=== PATIENT | male | born 1985 | race African-American/Black ===

== ENCOUNTER 2021-02-25 05:24 | Emergency (ER) | payer OTHER ==
[2021-02-25 05:58] LABS: BASOPHIL 0.3 % (0-2); EOSINOPHIL 2.6 % (0-5); HCT 47.4 % (42.0-52.0); HGB 16.7 g/dl (13.2-18.0); LYMPHOCYTE 22.7 % (15-48); MCH 29.5 pg (25.0-31.0); MCHC 35.2 g/dL (32.0-36.0); MCV 83.7 fL (78.0-100.0); MONOCYTE 18.2 % (0-12); MPV 9.5 fL (6.0-9.5); NEUTROPHIL 55.9 % (41-80); NRBC 0; PLT 227 K/uL (150-400); RBC 5.66 M/uL (4.70-6.00); RDW 12.5 % (11.5-14.0); WBC 5.8 K/uL (4.0-10.5)
[2021-02-25 06:18] LABS: ALBUMIN 3.8 g/dL (3.4-5.0); BILIRUBIN - TOTAL 0.5 mg/dL (0.2-1.0); BUN/CREAT RATIO (CALC) 12.4 RATIO; CREATININE 1.13 mg/dL (0.67-1.17); GLOBULIN (CALCULATION) 3.7 g/dL; MAGNESIUM 2.2 mg/dL (1.8-2.4); POTASSIUM 3.6 mmol/L (3.5-5.1); TOTAL PROTEIN 7.5 g/dL (6.4-8.2)
[2021-02-25] MEDS ORDERED: IBUPROFEN800 MG PO (06:51)
[2021-02-25] MEDS ORDERED: CYCLOBENZAPRINE10 MG PO (06:51)
[2021-02-25] MEDS ORDERED: PERCOCET 5-3251 EACH PO (06:51)
[2021-02-25] MEDS ORDERED: MEDROL 4MG DOSEP4 MG PO (06:51)
== END 2021-02-25 08:00 | disposition home or self-care (01) ==
LOC: FER 05:24
PROVIDERS: Emergency Medicine Emergency Medical Services
DX: M62.830 Muscle spasm of back (principal); R11.2 Nausea with vomiting, unspecified; I10 Essential (primary) hypertension; Z79.899 Other long term (current) drug therapy
CPT/HCPCS: 36415; 80053; 83735; 85025; J1100; J1170; J1885; J2405; J2800; J7050

== ENCOUNTER → 2022-08-12 | Day surgery (SDC) | payer OTHER ==
[~2022-08-12] VITALS: Ht 190.5 cm; Wt 127.0 kg
[~2022-08-12] MED LIST: CYCLOBENZAPRINE10 MG PO; HCTZ25 MG PO; IBUPROFEN800 MG PO; LOSARTAN POTASS50 MG PO; MEDROL 4MG DOSEP4 MG PO; NORVASC2.5 M1 PO; PERCOCET 5-3251 EACH PO
== END | disposition home or self-care (01) ==
LOC: FAS 06:13
DX: M16.11 Unilateral primary osteoarthritis, right hip (principal)
CPT/HCPCS: 76000; J1040; J2001; J2250; J2704; J7120; Q9967